=== PATIENT | female | born 1990 | race Caucasian/White ===

== ENCOUNTER → 2017-04-08 | Outpatient (CLI) | payer OTHER | LOC: LAB 22:03 | DX: Z02.1 Encounter for pre-employment examination (principal) | CPT/HCPCS: 36415; 80074; 87390 ==

== ENCOUNTER → 2017-04-08 | Outpatient (CLI) | payer BC ==
[2017-04-09 00:57] LABS: HEMOGLOBIN 13.5 gm/dl (12.3-15.3); RED BLOOD COUNT 4.96 M/UL (4.00-5.10); WHITE BLOOD COUNT 10.8 K/UL (4.5-11.0)
[2017-04-09 01:17] LABS: BUN/CREATININE RATIO 14 (0-10)
== END ==
LOC: LAB 23:52
PROVIDERS: Family Medicine Adolescent Medicine
DX: E03.9 Hypothyroidism, unspecified (principal)
CPT/HCPCS: 80053; 83036; 84443; 85025

== ENCOUNTER → 2017-05-28 | Outpatient (CLI) | payer OTHER | LOC: LAB 06:46 | DX: Z02.1 Encounter for pre-employment examination (principal) ==

== ENCOUNTER → 2021-01-24 | Outpatient (CLI) | payer BC, OTHER ==
[~2021-01-24] MED LIST: CIPRO500 MG PO; ZOFRAN ODT 4 MG4 MG PO
== END ==
LOC: DTC 13:16
DX: E10.9 Type 1 diabetes mellitus without complications (principal); E66.01 Morbid (severe) obesity due to excess calories; Z68.41 Body mass index [BMI] 40.0-44.9, adult
CPT/HCPCS: G0108

== ENCOUNTER 2021-01-25 22:30 | Emergency (ER) | payer BC, OTHER ==
[2021-01-26 00:04] LABS: HEMOGLOBIN 14.7 gm/dl (12.3-15.3); RED BLOOD COUNT 5.26 M/UL (4.00-5.10)
[2021-01-26 00:14] LABS: BUN/CREATININE RATIO 23 (0-10)
== END 2021-01-26 01:32 | disposition home or self-care (01) ==
LOC: ER1 22:30
PROVIDERS: Emergency Medicine
DX: R00.0 Tachycardia, unspecified (principal); R07.2 Precordial pain; E10.9 Type 1 diabetes mellitus without complications; Z88.0 Allergy status to penicillin; Z79.4 Long term (current) use of insulin
CPT/HCPCS: 71045; 80053; 82550; 82553; 83735; 83874; 83880; 84484; 85025; 93005; 99285

== ENCOUNTER → 2021-03-16 | Outpatient (CLI) | payer BC, OTHER ==
[2021-03-16 03:42] LABS: HEMOGLOBIN 14.5 gm/dl (12.3-15.3); RED BLOOD COUNT 5.13 M/UL (4.00-5.10); WHITE BLOOD COUNT 13.5 K/UL (4.5-11.0)
[2021-03-16 04:18] LABS: BUN/CREATININE RATIO 20 (0-10)
== END ==
LOC: LAB 03:25
PROVIDERS: Family Medicine Adolescent Medicine
DX: R00.0 Tachycardia, unspecified (principal)
CPT/HCPCS: 80053; 83735; 84439; 84443; 85025

== ENCOUNTER → 2021-03-27 | Outpatient (CLI) | payer BC, OTHER | LOC: EDSTATUS 08:21 → LAB 19:13 | DX: R00.0 Tachycardia, unspecified (principal); Z01.812 Encounter for preprocedural laboratory examination; Z20.822 Contact with and (suspected) exposure to COVID-19 | CPT/HCPCS: U0002 ==

== ENCOUNTER → 2021-03-30 | Outpatient (CLI) | payer BC, OTHER | LOC: ECHO 09:00 | DX: R00.0 Tachycardia, unspecified (principal) | CPT/HCPCS: ECHO; 93306 ==